=== PATIENT | male | born 1950 | race Caucasian/White ===

== ENCOUNTER → 2021-08-28 | Day surgery (SDC) | payer OTHER, BC ==
[2021-08-26 13:30] VITALS: BMI 33.6
[~2021-08-28] MED LIST: MIDAZOLAM HCL 2 MG/2 ML SINGLE DOSE VIAL ONE; PROPOFOL 20 ML ONE
== END | disposition home or self-care (01) ==
LOC: JASU-ENDO 05:29
PROVIDERS: ATTEND Internal Medicine Gastroenterology
DX: Z53.8 Procedure and treatment not carried out for other reasons (principal)

== ENCOUNTER 2021-10-19 04:26 | Day surgery (SDC) | payer OTHER, BC ==
[2021-10-14 13:29] VITALS: BMI 33.9
[2021-10-19] MEDS ORDERED: KETAMINE HCL 200 MG/20 ML VIAL ONE (07:21)
[2021-10-19 09:01] VITALS: TEMP 98
[2021-10-19 09:45] VITALS: BP 139/65; PULSE 92
== END 2021-10-19 09:46 | disposition home or self-care (01) ==
LOC: JASU-ENDO 04:26
PROVIDERS: ATTEND Internal Medicine Gastroenterology
PROC: 0DBK8ZX Excision of Ascending Colon, Via Natural or Artificial Opening Endoscopic, Diagnostic (ICD-10-PCS; principal; 2021-10-19 08:00)
DX: Z12.11 Encounter for screening for malignant neoplasm of colon (principal); D12.2 Benign neoplasm of ascending colon; K57.30 Diverticulosis of large intestine without perforation or abscess without bleeding; K64.8 Other hemorrhoids; K63.89 Other specified diseases of intestine
CPT/HCPCS: 82962; 88305-TC